=== PATIENT | male | born 1970 | race Caucasian/White ===

== ENCOUNTER 2018-02-01 11:43 | Inpatient (IN) | payer OTHER ==
[2018-02-01 15:16] VITALS: BMI 24.7
--- NOTE | 2018-02-01 16:41 | HP ---
CIWA Score - CIWA Score Nausea/Vomitin Muscle Tremors: 2 Anxiety: 3 Agitation: 2 Paroxysmal Sweats: 2 Orientation: 1-Uncertain about Date (no distress) Tacttile Disturbances: 0-None Auditory Disturbances: 0-None Visual Disturbances: 0-None Headache: 3-Moderate CIWA-Ar Total Score: 16 Admission [facility] Chief Complaint: alcohol withdrawal symptoms Allergies/Adverse Reactions: Allergies Allergy/AdvReac Type Severity Reaction Status Date / Time No Known Allergies Allergy Verified 02/01/18 16:58 History of Present Illness: 47 yo male with hx of nicotine , rack / cocaine and alcohol dependence is here seeking detox. Last detox [facility] 12/24/17 -12/27/17. PMHX: HTN, chronic back pain, bipolar, insomnia, anxiety and depression. Denies suicidal / homicidal ideation , reports hx of suicide attempt x1 ten years ago. Denies hx of seizures. Longest period of sobriety two years. Exam Limitations: No Limitations - Ebola screening Have you traveled outside of the country in the last 21 days: No Have you had contact with anyone from an Ebola affected area: No Have you been sick,other than usual withdrawal symptoms: No Do you have a fever: No - Review of Systems Constitutional: Diaphoresis, Changes in sleep, Unintentional Wgt. Loss (12 lbs in past two months) EENT: reports: Dental Problems (poor dentition) Respiratory: reports: No Symptoms reported Cardiac: reports: No Symptoms Reported GI: reports: Nausea, Poor Appetite, Poor Fluid Intake, Abdominal cramping : reports: No Symptoms Reported Musculoskeletal: reports: Back Pain Integumentary: reports: No Symptoms Reported Neuro: reports: No Symptoms reported Endocrine: reports: Increased Thirst Hematology: reports: No Symptoms Reported Psychiatric: reports: Orientated x3, Anxious Other Systems: Reviewed and Negative Patient History - Patient Medical History Hx Anemia: No Hx Asthma: No Hx Chronic Obstructive Pulmonary Disease (COPD): No Hx Cancer: No Hx Cardiac Disorders: No Hx Congestive Heart Failure: No Hx Hypertension: Yes (on meds) Hx Hypercholesterolemia: No Hx Pacemaker: No HX Cerebrovascular Accident: No Hx Seizures: No Hx Diabetes: No Hx Gastrointestinal Disorders: Yes (gerd) Hx Liver Disease: No Hx Genitourinary Disorders: No Hx Sexually Transmitted Disorders: No Hx Renal Disease (ESRD): No Hx Thyroid Disease: No Hx Human Immunodeficiency Virus (HIV): No (last tested three months ago ) Hx Hepatitis C: No Hx Depression: Yes (hospitalized september 2017 [facility]) Hx Suicide Attempt: Yes (10 years ago by hanging ) Hx Bipolar Disorder: Yes Hx Schizophrenia: No - Patient Surgical History Past Surgical History: No Hx Neurologic Surgery: No Hx Cataract Extraction: No Hx Cardiac Surgery: No Hx Lung Surgery: No Hx Breast Surgery: No Hx Breast Biopsy: No Hx Abdominal Surgery: No Hx Appendectomy: No Hx Cholecystectomy: No Hx Genitourinary Surgery: No Hx Section: No Hx Orthopedic Surgery: No Anesthesia Reaction: No - PPD History Previous Implant?: No (CXRAY 12/26/17 NEG ) Documented Results: Negative w/o proof PPD to be Administered?: No - Smoking Cessation Smoking history: Current every day smoker Have you smoked in the past 12 months: Yes Aproximately how many cigarettes per day: 15 Cigars Per Day: 0 Hx Chewing Tobacco Use: No Initiated information on smoking cessation: Yes 'Breaking Loose' booklet given: 02/01/18 - Substance & Tx. History Hx Alcohol Use: Yes Hx Substance Use: Yes Substance Use Type: Alcohol Hx Substance Use Treatment: Yes ([facility] 12/24/17 -12/27/17) - Substances Abused Alcohol Route: Oral Frequency: Daily Amount used: 10 x 40 oz beer + 10 nips Age of first use: 18 Date of Last Use: 01/31/18 Crack Route: Smoking Frequency: Daily Amount used: $100 Age of first use: 24 Date of Last Use: 01/31/18 Family Disease History - Family Disease History Family Disease History: Heart Disease: Father (, ), [place]: Mother (living, ), Other: Father, Mother, Brother (seven - one HIV), Sister (five - one killed herself) Admission Physical Exam BHS - Vital Signs Vital Signs: Vital Signs - 24 hr 02/01/18 15:14 Temperature 98.3 F Pulse Rate 64 Respiratory 18 Rate Blood Pressure 145/91 - Physical General Appearance: Yes: Disheveled, Mild Distress, Thin, Sweating, Anxious HEENTM: Yes: EOMI, Hearing grossly Normal, Normal ENT Inspection, Normocephalic , Normal Voice, ANGIE, Pharynx Normal, Tm's normal, Other (poor dentition) Respiratory: Yes: Chest Non-Tender, Lungs Clear, Normal Breath Sounds, No Respiratory Distress, No Accessory Muscle Use Neck: Yes: Within Normal Limits Breast: Yes: Breast Exam Deferred Cardiology: Yes: Regular Rhythm, Regular Rate Abdominal: Yes: Normal Bowel Sounds, Non Tender, Flat, Soft Musculoskeletal: Yes: full range of Motion, Gait Steady, Pelvis Stable, Back pain Extremities: Yes: Normal Capillary Refill, Normal Inspection, Normal Range of Motion, Non-Tender Neurological: Yes: lump roller II-XII NML intact, Fully Oriented, Alert, Motor Strength 5/5, Depressed Affect Integumentary: Yes: Normal Color, Warm, Diaphoresis - Diagnostic (1) Alcohol dependence with uncomplicated withdrawal Current Visit: Yes Status: Acute (2) Cocaine dependence Current Visit: Yes Status: Acute Qualifiers: Substance use status: uncomplicated Qualified Code(s): F14.20 - Cocaine dependence, uncomplicated (3) Nicotine dependence Current Visit: Yes Status: Acute Qualifiers: Nicotine product type: cigarettes Substance use status: in withdrawal Qualified Code(s): F17.213 - Nicotine dependence, cigarettes, with withdrawal (4) GERD (gastroesophageal reflux disease) Current Visit: Yes Status: Chronic Qualifiers: Esophagitis presence: esophagitis presence not specified Qualified Code(s) : K21.9 - Gastro-esophageal reflux disease without esophagitis (5) HTN (hypertension) Current Visit: Yes Status: Chronic Qualifiers: Hypertension type: essential hypertension Qualified Code(s): I10 - Essential (primary) hypertension Cleared for Admission S - Detox or Rehab [facility] Level of Care: Medically Managed Detox Regimen/Protocol: Librium S Breath Alcohol Content Breath Alcohol Content: 0 Urine Drug Screen - Results Drug Screen Negative: No Urine Drug Screen Results: PATI-Cocaine
[2018-02-01] MEDS ORDERED: MAGNESIUM CITRATE 300 ML BOTTLE PO PRN (16:50)
[2018-02-01] MEDS ORDERED: MENTHOL/PHENOL 1 EACH UD MM PRN (16:50)
[2018-02-01] MEDS ORDERED: chlordiazePOXIDE HCL 25 MG CAPSULE PO PRN (16:50)
[2018-02-01] MEDS ORDERED: IBUPROFEN 400 MG TABLET (FP) PO PRN (16:50)
[2018-02-01] MEDS ORDERED: guaiFENesin/D-METHORPHAN HB 10 ML UNIT-DOSE CUPS PO PRN (16:50)
[2018-02-01] MEDS ORDERED: P-EPHED 60MG/TRIPROLIDI 2.5MG TABLET PO PRN (16:50)
[2018-02-01] MEDS ORDERED: LOPERAMIDE HCL 2 MG CAPSULE PO PRN (16:50)
[2018-02-01] MEDS ORDERED: ACETAMINOPHEN 325 MG TABLET (FP) PO PRN (16:50)
[2018-02-01] MEDS ORDERED: MAGNESIUM HYDROX 2400MG/30ML ORAL SUSPENSION 30 ML CUP PO PRN (16:50)
[2018-02-01] MEDS ORDERED: chlordiazePOXIDE HCL 25 MG CAPSULE PO ONE (18:15)
[2018-02-01] MEDS: amLODIPine BESYLATE 10 MG TABLET (FP) PO SCH (18:59)
[2018-02-01] MEDS ORDERED: CYCLOBENZAPRINE HCL 10 MG TABLET (FP) PO SCH (22:00)
[2018-02-01] MEDS ORDERED: MELATONIN 5 MG TABLETS PO PRN (22:00)
[2018-02-01] MEDS: THIAMINE HCL 100 MG TABLET (FP) PO SCH (23:04)
[2018-02-01] MEDS: chlordiazePOXIDE HCL 25 MG CAPSULE PO SCH (23:04)
[2018-02-02 02:15] LABS: URINE APPEARANCE CLEAR; URINE BILIRUBIN NEGATIVE (<2.0 mg/dL); URINE COLOR YELLOW; URINE GLUCOSE (UA) NEGATIVE (NEGATIVE); URINE KETONE NEGATIVE (NEGATIVE); URINE LEUK ESTERASE NEGATIVE (NEGATIVE); URINE NITRITE NEGATIVE (NEGATIVE); URINE PROTEIN NEGATIVE (NEGATIVE); URINE UROBILINOGEN NEGATIVE mg/dL (0.2-1.0)
[2018-02-02 02:35] LABS: EPI CELLS RARE /HPF (FEW); URINE MUCUS MODERATE
[2018-02-02] MEDS: chlordiazePOXIDE HCL 25 MG CAPSULE PO SCH ×4 (06:38→22:44)
[2018-02-02] MEDS: CYCLOBENZAPRINE HCL 5 MG TABLET PO SCH ×3 (06:41→22:42)
--- NOTE | 2018-02-02 09:35 | CONSULT ---
[facility] Psychiatric Consult - Data Date of interview: 02/02/18 Admission source: [facility] Identifying data: This is a 47 years old male, single, homeless, on PA, with Bipolar Disordwer history, with psychiatris hospitalization history, with long history of Cocaine, Alcohol and Niucotine deprendence. Patient reports withdrawal symptoms and seeking for detox. Substance Abuse History: Smoking history: Current every day smoker. Have you smoked in the past 12 months: Yes. Aproximately how many cigarettes per day: 15. Cigars Per Day: 0. Hx Chewing Tobacco Use: No. Initiated information on smoking cessation: Yes. 'Breaking Loose' booklet given: 02/01/18. - Substance & Tx. History. Hx Alcohol Use: Yes. Hx Substance Use: Yes. Substance Use Type : Alcohol. Hx Substance Use Treatment: Yes ([facility] 12/24/17 -12/27/17). - Substances Abused. Alcohol. Route: Oral. Frequency: Daily. Amount used: 10 x 40 oz beer + 10 nips. Age of first use: 18. Date of Last Use: 01/31/18. Crack. Route: Smoking. Frequency: Daily. Amount used: $100. Age of first use: 24. Date of Last Use: 01/31/18 Medical History: GERD, HTN, LBP Psychiatric History: Patient reports history of Bipolar Disorder, as per computer history of MDD, with most recent psychiatric admission on 4 months ago at [facility] due to depression. Patient reports suiciadal attempt on more then 10 years ago by hanging himself, reports no suicidal history sinse then. Patient reports taking prior to admission: Seroquel 100mg po qhs. Lexapro 10mg poqd. Gabapentine 800mg po tid. Physical/Sexual Abuse/Trauma History: Denies Additional Comment: Seroquel 100mg po qhs. Lexapro 10mg poqd. Gabapentine 800mg po tid. Mental Status Exam - Mental Status Exam Alert and Oriented to: Place, Person Cognitive Function: Fair Patient Appearance: Well Groomed Mood: Anxious Affect: Mood Congruent Patient Behavior: Appropriate, Cooperative Speech Pattern: Appropriate Voice Loudness: Normal Thought Process: Goal Oriented Thought Disorder: Being Controlled Hallucinations: Denies Suicidal Ideation: Denies Homicidal Ideation: Denies Insight/Judgement: Fair Sleep: Difficulty falling asleep Appetite: Weight loss Muscle strength/Tone: Normal Gait/Station: Normal Additional Comments: Seroquel 100mg po qhs. Lexapro 10mg poqd. Gabapentine 800mg po tid. Psychiatric Findings - Problem List (Vader 1, 2,3) (1) Bipolar disorder Current Visit: Yes Status: Acute (2) Alcohol dependence with uncomplicated withdrawal Current Visit: Yes Status: Acute (3) Cocaine dependence Current Visit: Yes Status: Acute Qualifiers: Substance use status: uncomplicated Qualified Code(s): F14.20 - Cocaine dependence, uncomplicated (4) Nicotine dependence Current Visit: Yes Status: Acute Qualifiers: Nicotine product type: cigarettes Substance use status: in withdrawal Qualified Code(s): F17.213 - Nicotine dependence, cigarettes, with withdrawal (5) GERD (gastroesophageal reflux disease) Current Visit: Yes Status: Chronic Qualifiers: Esophagitis presence: esophagitis presence not specified Qualified Code(s) : K21.9 - Gastro-esophageal reflux disease without esophagitis (6) HTN (hypertension) Current Visit: Yes Status: Chronic Qualifiers: Hypertension type: essential hypertension Qualified Code(s): I10 - Essential (primary) hypertension (7) Substance-induced anxiety disorder Current Visit: No Status: Acute (8) Substance-induced sleep disorder Current Visit: No Status: Acute (9) MDD (major depressive disorder), recurrent episode, moderate Current Visit: No Status: Chronic (10) PPD positive, treated Current Visit: No Status: Resolved - Initial Treatment Plan Initial Treatment Plan: Seroquel 100mg po qhs. Lexapro 10mg poqd. Gabapentine 800mg po tid.
[2018-02-02 10:34] LABS: HEMATOCRIT 47.4 % (35.4-49); HEMOGLOBIN 15.5 GM/dL (11.7-16.9); MCHC 32.7 g/dl (32.0-35.9); MEAN CELL VOLUME 85.7 fl (80-96); MEAN PLT VOLUME 7.6 fl (7.5-11.1); PLATELET COUNT 300 K/MM3 (134-434); RBC 5.54 M/mm3 (4.00-5.60); RDW 15.7 % (11.9-15.9); WHITE BLOOD COUNT 6.1 K/mm3 (4.0-10.0)
[2018-02-02] MEDS: amLODIPine BESYLATE 10 MG TABLET (FP) PO SCH (10:51)
[2018-02-02] MEDS: ESCITALOPRAM OXALATE 10 MG TABLET (FP) PO SCH (10:51)
[2018-02-02] MEDS: PRENATAL VITAMINS W/ FOLIC ACID TABLET (FP) PO SCH (10:52)
[2018-02-02 11:05] LABS: CHLORIDE 107 mmol/L (98-107); POTASSIUM 4.3 mmol/L (3.5-5.1); SGOT/AST 14 U/L (15-37); SODIUM 143 mmol/L (136-145)
--- NOTE | 2018-02-02 11:10 | PN ---
S CIWA - CIWA Score Nausea/Vomitin Muscle Tremors: 3 Anxiety: 3 Agitation: 2 Paroxysmal Sweats: 1-Minimal Palms Moist Orientation: 0-Oriented Tacttile Disturbances: 1-Very Mild Itch/Numbness Auditory Disturbances: 1-Very Mild Visual Disturbances: 0-None Headache: 2-Mild CIWA-Ar Total Score: 16 BHS Progress Note (SOAP) Subjective: alert,irritable,anxious,interrupted sleep,tremor Objective: 02/02/18 11:08 Vital Signs Temperature 98.1 F 02/02/18 10:28 Pulse Rate 63 02/02/18 10:28 Respiratory Rate 18 02/02/18 10:28 Blood Pressure 115/71 02/02/18 10:28 O2 Sat by Pulse Oximetry (%) 02/02/18 11:08 ekg nsr with sinus arrhythmia normal ecg qt/qtc 422/424 Assessment: 02/02/18 11:09 withdrawal symptom Plan: continue detox
[2018-02-02 11:34] LABS: ALBUMIN 3.4 g/dl (3.4-5.0); ALK PHOS 110 U/L (45-117); ANION GAP 9 (8-16); BILIRUBIN,TOTAL 0.3 mg/dL (0.2-1.0); BLOOD UREA NITROGEN 14 mg/dL (7-18); CALCIUM 8.8 mg/dL (8.5-10.1); CO2 27 mmol/L (21-32); GLUCOSE,RANDOM 99 mg/dL (74-106); SGPT/ALT 23 U/L (12-78); TOT PROT 6.4 g/dl (6.4-8.2)
[2018-02-02] MEDS: GABAPENTIN 400 MG CAPSULE (FP) PO SCH ×2 (14:52→22:42)
--- NOTE | 2018-02-02 16:50 | EKG ---
Test Reason : Blood Pressure : / mmHG Vent. Rate : 061 BPM Atrial Rate : 061 BPM P-R Int : 164 ms QRS Dur : 090 ms QT Int : 422 ms P-R-T Axes : 039 027 030 degrees QTc Int : 424 ms NORMAL SINUS RHYTHM WITH SINUS ARRHYTHMIA NORMAL ECG WHEN COMPARED WITH ECG OF 24-DEC-2017 13:56, NO SIGNIFICANT CHANGE WAS FOUND Confirmed by ANGEL FIELDS MD ([id number]) on 02/02/2018 3:52:16 PM Referred By: Confirmed By:ANGEL FIELDS MD
[2018-02-02] MEDS: THIAMINE HCL 100 MG TABLET (FP) PO SCH (22:42)
[2018-02-02] MEDS: QUEtiapine FUMARATE 100 MG TABLET (FP) PO SCH (22:42)
[2018-02-03] MEDS: CYCLOBENZAPRINE HCL 5 MG TABLET PO SCH ×3 (06:01→22:30)
[2018-02-03] MEDS: GABAPENTIN 400 MG CAPSULE (FP) PO SCH ×3 (06:02→22:30)
[2018-02-03] MEDS: chlordiazePOXIDE HCL 25 MG CAPSULE PO SCH ×3 (06:02→17:42)
--- NOTE | 2018-02-03 10:30 | PN ---
S CIWA - CIWA Score Nausea/Vomitin Muscle Tremors: 3 Anxiety: 3 Agitation: 2 Paroxysmal Sweats: 1-Minimal Palms Moist Orientation: 0-Oriented Tacttile Disturbances: 1-Very Mild Itch/Numbness Auditory Disturbances: 1-Very Mild Visual Disturbances: 0-None Headache: 2-Mild CIWA-Ar Total Score: 16 BHS Progress Note (SOAP) Subjective: alert,irritable,anxious,interrupted sleep,tremor Objective: 02/03/18 10:26 Vital Signs Temperature 98.1 F 02/03/18 09:23 Pulse Rate 60 02/03/18 09:23 Respiratory Rate 18 02/03/18 09:23 Blood Pressure 116/70 02/03/18 09:23 O2 Sat by Pulse Oximetry (%) 02/03/18 10:26 Laboratory Last Values WBC 6.1 K/mm3 (4.0-10.0) 02/02/18 07:00 RBC 5.54 M/mm3 (4.00-5.60) 02/02/18 07:00 Hgb 15.5 GM/dL (11.7-16.9) 02/02/18 07:00 Hct 47.4 % (35.4-49) 02/02/18 07:00 MCV 85.7 fl (80-96) 02/02/18 07:00 MCH 28.0 pg (25.7-33.7) 02/02/18 07:00 MCHC 32.7 g/dl (32.0-35.9) 02/02/18 07:00 RDW 15.7 % (11.9-15.9) 02/02/18 07:00 Plt Count 300 K/MM3 (134-434) 02/02/18 07:00 MPV 7.6 fl (7.5-11.1) 02/02/18 07:00 Sodium 143 mmol/L (136-145) 02/02/18 07:00 Potassium 4.3 mmol/L (3.5-5.1) 02/02/18 07:00 Chloride 107 mmol/L (98-107) 02/02/18 07:00 Carbon Dioxide 27 mmol/L (21-32) 02/02/18 07:00 Anion Gap 9 (8-16) 02/02/18 07:00 BUN 14 mg/dL (7-18) 02/02/18 07:00 Creatinine 1.0 mg/dL (0.7-1.3) 02/02/18 07:00 Creat Clearance w eGFR > 60 (>60) 02/02/18 07:00 Random Glucose 99 mg/dL (74-106) 02/02/18 07:00 Calcium 8.8 mg/dL (8.5-10.1) 02/02/18 07:00 Total Bilirubin 0.3 mg/dL (0.2-1.0) 02/02/18 07:00 AST 14 U/L (15-37) L D 02/02/18 07:00 ALT 23 U/L (12-78) 02/02/18 07:00 Alkaline Phosphatase 110 U/L (45-117) 02/02/18 07:00 Total Protein 6.4 g/dl (6.4-8.2) 02/02/18 07:00 Albumin 3.4 g/dl (3.4-5.0) 02/02/18 07:00 Urine Color Yellow 02/02/18 00:01 Urine Appearance Clear 02/02/18 00:01 Urine pH 5.0 (5.0-8.0) 02/02/18 00:01 Ur Specific [place] 1.028 (1.001-1.035) 02/02/18 00:01 Urine Protein Negative (NEGATIVE) 02/02/18 00:01 Urine Glucose (UA) Negative (NEGATIVE) 02/02/18 00:01 Urine Ketones Negative (NEGATIVE) 02/02/18 00:01 Urine Blood 1+ (NEGATIVE) H 02/02/18 00:01 Urine Nitrite Negative (NEGATIVE) 02/02/18 00:01 Urine Bilirubin Negative (<2.0 mg/dL) 02/02/18 00:01 Urine Urobilinogen Negative mg/dL (0.2-1.0) 02/02/18 00:01 Ur Leukocyte Esterase Negative (NEGATIVE) 02/02/18 00:01 Urine WBC (Auto) 6 /hpf (3-5) 02/02/18 00:01 Urine RBC (Auto) 1 /hpf (0-3) 02/02/18 00:01 Ur Epithelial Cells Rare /HPF (FEW) 02/02/18 00:01 Urine Mucus Moderate 02/02/18 00:01 HIV 1&2 Antibody Screen Negative 02/02/18 07:00 HIV P24 Antigen Negative 02/02/18 07:00 Assessment: 02/03/18 10:27 withdrawal symptom Plan: continue detox
[2018-02-03] MEDS: amLODIPine BESYLATE 10 MG TABLET (FP) PO SCH (10:43)
[2018-02-03] MEDS: ESCITALOPRAM OXALATE 10 MG TABLET (FP) PO SCH (10:43)
[2018-02-03] MEDS: PRENATAL VITAMINS W/ FOLIC ACID TABLET (FP) PO SCH (10:43)
[2018-02-03] MEDS: QUEtiapine FUMARATE 100 MG TABLET (FP) PO SCH (22:30)
[2018-02-03] MEDS: chlordiazePOXIDE 5 MG CAPSULE PO SCH (22:30)
[2018-02-03] MEDS: THIAMINE HCL 100 MG TABLET (FP) PO SCH (22:30)
[2018-02-04] MEDS: GABAPENTIN 400 MG CAPSULE (FP) PO SCH ×2 (05:30→15:00)
[2018-02-04] MEDS: CYCLOBENZAPRINE HCL 5 MG TABLET PO SCH ×2 (05:31→15:01)
[2018-02-04] MEDS: chlordiazePOXIDE 5 MG CAPSULE PO SCH ×3 (05:31→18:12)
[2018-02-04] MEDS: ESCITALOPRAM OXALATE 10 MG TABLET (FP) PO SCH (10:37)
[2018-02-04] MEDS: amLODIPine BESYLATE 10 MG TABLET (FP) PO SCH (10:37)
[2018-02-04] MEDS: PRENATAL VITAMINS W/ FOLIC ACID TABLET (FP) PO SCH (10:37)
[2018-02-04] MEDS: hydrOXYzine PAMOATE 50 MG CAPSULE (FP) PO PRN (18:12)
--- NOTE | 2018-02-04 22:59 | PN ---
BHS Progress Note (SOAP) Subjective: shakes sweats Sleeplessness Objective: 02/04/18 22:58 Sleeping but arouses to verbal stimuli A & O x 3 Not in acute distress Assessment: 02/04/18 22:58 withdrawal sx Plan: continue detox
[2018-02-05] MEDS: QUEtiapine FUMARATE 100 MG TABLET (FP) PO SCH (00:18)
[2018-02-05] MEDS: THIAMINE HCL 100 MG TABLET (FP) PO SCH (00:18)
[2018-02-05] MEDS: CYCLOBENZAPRINE HCL 5 MG TABLET PO SCH ×3 (00:18→15:00)
[2018-02-05] MEDS: GABAPENTIN 400 MG CAPSULE (FP) PO SCH ×3 (00:18→15:00)
[2018-02-05] MEDS: chlordiazePOXIDE HCL 10 MG CAPSULE PO SCH ×4 (00:19→17:29)
[2018-02-05] MEDS: MAG HYDROX/AL HYDROX/SIMETH 30 ML UNIT-DOSE CUP PO PRN (00:53)
[2018-02-05] MEDS: ESCITALOPRAM OXALATE 10 MG TABLET (FP) PO SCH (11:36)
[2018-02-05] MEDS: PRENATAL VITAMINS W/ FOLIC ACID TABLET (FP) PO SCH (11:36)
[2018-02-05] MEDS: amLODIPine BESYLATE 10 MG TABLET (FP) PO SCH (11:36)
--- NOTE | 2018-02-05 11:47 | PN ---
S Progress Note (SOAP) Subjective: Interrupted sleep,muscle aches Objective: 02/05/18 11:46 Vital Signs 02/05/18 02/05/18 06:00 10:23 Temperature 97.5 F L 97.9 F Pulse Rate 72 89 Respiratory 18 18 Rate Blood Pressure 121/69 129/90 Laboratory Last Values WBC 6.1 K/mm3 (4.0-10.0) 02/02/18 07:00 RBC 5.54 M/mm3 (4.00-5.60) 02/02/18 07:00 Hgb 15.5 GM/dL (11.7-16.9) 02/02/18 07:00 Hct 47.4 % (35.4-49) 02/02/18 07:00 MCV 85.7 fl (80-96) 02/02/18 07:00 MCH 28.0 pg (25.7-33.7) 02/02/18 07:00 MCHC 32.7 g/dl (32.0-35.9) 02/02/18 07:00 RDW 15.7 % (11.9-15.9) 02/02/18 07:00 Plt Count 300 K/MM3 (134-434) 02/02/18 07:00 MPV 7.6 fl (7.5-11.1) 02/02/18 07:00 Sodium 143 mmol/L (136-145) 02/02/18 07:00 Potassium 4.3 mmol/L (3.5-5.1) 02/02/18 07:00 Chloride 107 mmol/L (98-107) 02/02/18 07:00 Carbon Dioxide 27 mmol/L (21-32) 02/02/18 07:00 Anion Gap 9 (8-16) 02/02/18 07:00 BUN 14 mg/dL (7-18) 02/02/18 07:00 Creatinine 1.0 mg/dL (0.7-1.3) 02/02/18 07:00 Creat Clearance w eGFR > 60 (>60) 02/02/18 07:00 Random Glucose 99 mg/dL (74-106) 02/02/18 07:00 Calcium 8.8 mg/dL (8.5-10.1) 02/02/18 07:00 Total Bilirubin 0.3 mg/dL (0.2-1.0) 02/02/18 07:00 AST 14 U/L (15-37) L D 02/02/18 07:00 ALT 23 U/L (12-78) 02/02/18 07:00 Alkaline Phosphatase 110 U/L (45-117) 02/02/18 07:00 Total Protein 6.4 g/dl (6.4-8.2) 02/02/18 07:00 Albumin 3.4 g/dl (3.4-5.0) 02/02/18 07:00 Urine Color Yellow 02/02/18 00:01 Urine Appearance Clear 02/02/18 00:01 Urine pH 5.0 (5.0-8.0) 02/02/18 00:01 Ur Specific [place] 1.028 (1.001-1.035) 02/02/18 00:01 Urine Protein Negative (NEGATIVE) 02/02/18 00:01 Urine Glucose (UA) Negative (NEGATIVE) 02/02/18 00:01 Urine Ketones Negative (NEGATIVE) 02/02/18 00:01 Urine Blood 1+ (NEGATIVE) H 02/02/18 00:01 Urine Nitrite Negative (NEGATIVE) 02/02/18 00:01 Urine Bilirubin Negative (<2.0 mg/dL) 02/02/18 00:01 Urine Urobilinogen Negative mg/dL (0.2-1.0) 02/02/18 00:01 Ur Leukocyte Esterase Negative (NEGATIVE) 02/02/18 00:01 Urine WBC (Auto) 6 /hpf (3-5) 02/02/18 00:01 Urine RBC (Auto) 1 /hpf (0-3) 02/02/18 00:01 Ur Epithelial Cells Rare /HPF (FEW) 02/02/18 00:01 Urine Mucus Moderate 02/02/18 00:01 RPR Titer Nonreactive (NONREACTIVE) 02/02/18 07:00 HIV 1&2 Antibody Screen Negative 02/02/18 07:00 HIV P24 Antigen Negative 02/02/18 07:00 Labs noted Assessment: 02/05/18 11:47 Withdrawal sx resolving Plan: Continue detox
--- NOTE | 2018-02-05 11:50 | DS ---
[facility] Detox Discharge Summary Admission Date: 02/01/18 Discharge Date: 02/05/18 - History Present History: Alcohol Dependence Pertinent Past History: GERD, HTN & Mood disorder - Physical Exam Results Vital Signs: Vital Signs Temperature 97.9 F 02/05/18 10:23 Pulse Rate 89 02/05/18 10:23 Respiratory Rate 18 02/05/18 10:23 Blood Pressure 129/90 02/05/18 10:23 O2 Sat by Pulse Oximetry (%) Pertinent Admission Physical Exam Findings: Withdrawal sx Laboratory Last Values WBC 6.1 K/mm3 (4.0-10.0) 02/02/18 07:00 RBC 5.54 M/mm3 (4.00-5.60) 02/02/18 07:00 Hgb 15.5 GM/dL (11.7-16.9) 02/02/18 07:00 Hct 47.4 % (35.4-49) 02/02/18 07:00 MCV 85.7 fl (80-96) 02/02/18 07:00 MCH 28.0 pg (25.7-33.7) 02/02/18 07:00 MCHC 32.7 g/dl (32.0-35.9) 02/02/18 07:00 RDW 15.7 % (11.9-15.9) 02/02/18 07:00 Plt Count 300 K/MM3 (134-434) 02/02/18 07:00 MPV 7.6 fl (7.5-11.1) 02/02/18 07:00 Sodium 143 mmol/L (136-145) 02/02/18 07:00 Potassium 4.3 mmol/L (3.5-5.1) 02/02/18 07:00 Chloride 107 mmol/L (98-107) 02/02/18 07:00 Carbon Dioxide 27 mmol/L (21-32) 02/02/18 07:00 Anion Gap 9 (8-16) 02/02/18 07:00 BUN 14 mg/dL (7-18) 02/02/18 07:00 Creatinine 1.0 mg/dL (0.7-1.3) 02/02/18 07:00 Creat Clearance w eGFR > 60 (>60) 02/02/18 07:00 Random Glucose 99 mg/dL (74-106) 02/02/18 07:00 Calcium 8.8 mg/dL (8.5-10.1) 02/02/18 07:00 Total Bilirubin 0.3 mg/dL (0.2-1.0) 02/02/18 07:00 AST 14 U/L (15-37) L D 02/02/18 07:00 ALT 23 U/L (12-78) 02/02/18 07:00 Alkaline Phosphatase 110 U/L (45-117) 02/02/18 07:00 Total Protein 6.4 g/dl (6.4-8.2) 02/02/18 07:00 Albumin 3.4 g/dl (3.4-5.0) 02/02/18 07:00 Urine Color Yellow 02/02/18 00:01 Urine Appearance Clear 02/02/18 00:01 Urine pH 5.0 (5.0-8.0) 02/02/18 00:01 Ur Specific [place] 1.028 (1.001-1.035) 02/02/18 00:01 Urine Protein Negative (NEGATIVE) 02/02/18 00:01 Urine Glucose (UA) Negative (NEGATIVE) 02/02/18 00:01 Urine Ketones Negative (NEGATIVE) 02/02/18 00:01 Urine Blood 1+ (NEGATIVE) H 02/02/18 00:01 Urine Nitrite Negative (NEGATIVE) 02/02/18 00:01 Urine Bilirubin Negative (<2.0 mg/dL) 02/02/18 00:01 Urine Urobilinogen Negative mg/dL (0.2-1.0) 02/02/18 00:01 Ur Leukocyte Esterase Negative (NEGATIVE) 02/02/18 00:01 Urine WBC (Auto) 6 /hpf (3-5) 02/02/18 00:01 Urine RBC (Auto) 1 /hpf (0-3) 02/02/18 00:01 Ur Epithelial Cells Rare /HPF (FEW) 02/02/18 00:01 Urine Mucus Moderate 02/02/18 00:01 RPR Titer Nonreactive (NONREACTIVE) 02/02/18 07:00 HIV 1&2 Antibody Screen Negative 02/02/18 07:00 HIV P24 Antigen Negative 02/02/18 07:00 Labs noted - Treatment Hospital Course: Detox Protocol Followed, Detoxed Safely, Responded well, Discharged Condition Good, Rehab Referral Accepted Patient has Accepted a Rehab Referral to: [facility] - Medication Discharge Medications: Ambulatory Orders Ranitidine [Zantac -] 150 mg PO DAILY 12/24/17 Amlodipine Besylate [Norvasc -] 10 mg PO DAILY #30 tablet 12/27/17 Escitalopram Oxalate [Lexapro -] 10 mg PO DAILY #30 tablet 02/02/18 Gabapentin 800 mg PO TID #90 tablet 02/02/18 Quetiapine Fumarate [Seroquel] 100 mg PO HS #30 tablet 02/02/18 - Diagnosis (1) Alcohol dependence with uncomplicated withdrawal Current Visit: Yes Status: Acute (2) Cocaine dependence Current Visit: Yes Status: Acute Qualifiers: Substance use status: uncomplicated Qualified Code(s): F14.20 - Cocaine dependence, uncomplicated (3) Nicotine dependence Current Visit: Yes Status: Acute Qualifiers: Nicotine product type: cigarettes Substance use status: in withdrawal Qualified Code(s): F17.213 - Nicotine dependence, cigarettes, with withdrawal (4) GERD (gastroesophageal reflux disease) Current Visit: Yes Status: Chronic Qualifiers: Esophagitis presence: esophagitis presence not specified Qualified Code(s) : K21.9 - Gastro-esophageal reflux disease without esophagitis (5) HTN (hypertension) Current Visit: Yes Status: Chronic Qualifiers: Hypertension type: essential hypertension Qualified Code(s): I10 - Essential (primary) hypertension (6) Substance-induced anxiety disorder Current Visit: No Status: Acute (7) Substance-induced sleep disorder Current Visit: No Status: Acute (8) MDD (major depressive disorder), recurrent episode, moderate Current Visit: No Status: Chronic - AMA Did Patient Leave Against Medical Advice: No
[2018-02-05] MEDS: hydrOXYzine PAMOATE 50 MG CAPSULE (FP) PO PRN (17:29)
[2018-02-06] MEDS: QUEtiapine FUMARATE 100 MG TABLET (FP) PO SCH (00:53)
[2018-02-06] MEDS: GABAPENTIN 400 MG CAPSULE (FP) PO SCH ×2 (00:53→06:27)
[2018-02-06] MEDS: THIAMINE HCL 100 MG TABLET (FP) PO SCH (00:53)
[2018-02-06] MEDS: CYCLOBENZAPRINE HCL 5 MG TABLET PO SCH ×2 (00:53→06:27)
[2018-02-06] MEDS: MAG HYDROX/AL HYDROX/SIMETH 30 ML UNIT-DOSE CUP PO PRN (03:13)
--- NOTE | 2018-02-06 08:12 | PN ---
S Progress Note (SOAP) Subjective: alert,no complaint Objective: 02/06/18 08:11 Vital Signs Temperature 97.3 F L 02/06/18 06:23 Pulse Rate 61 02/06/18 06:23 Respiratory Rate 18 02/06/18 06:23 Blood Pressure 123/73 02/06/18 06:23 O2 Sat by Pulse Oximetry (%) Assessment: 02/06/18 08:11 detox completed,no withdrawal symptom Plan: discharge today,follow up with after care program as arrangement
--- NOTE | 2018-02-06 08:15 | DS ---
[facility] Detox Discharge Summary Admission Date: 02/01/18 Discharge Date: 02/06/18 - History Present History: Alcohol Dependence, Cocaine Dependence Additional Comments: follow up with after care program as arrangement Pertinent Past History: nicotine dependence gerd hypertension - Physical Exam Results Vital Signs: Vital Signs Temperature 97.3 F L 02/06/18 06:23 Pulse Rate 61 02/06/18 06:23 Respiratory Rate 18 02/06/18 06:23 Blood Pressure 123/73 02/06/18 06:23 O2 Sat by Pulse Oximetry (%) Pertinent Admission Physical Exam Findings: withdrawal signs and symptom Laboratory Last Values WBC 6.1 K/mm3 (4.0-10.0) 02/02/18 07:00 RBC 5.54 M/mm3 (4.00-5.60) 02/02/18 07:00 Hgb 15.5 GM/dL (11.7-16.9) 02/02/18 07:00 Hct 47.4 % (35.4-49) 02/02/18 07:00 MCV 85.7 fl (80-96) 02/02/18 07:00 MCH 28.0 pg (25.7-33.7) 02/02/18 07:00 MCHC 32.7 g/dl (32.0-35.9) 02/02/18 07:00 RDW 15.7 % (11.9-15.9) 02/02/18 07:00 Plt Count 300 K/MM3 (134-434) 02/02/18 07:00 MPV 7.6 fl (7.5-11.1) 02/02/18 07:00 Sodium 143 mmol/L (136-145) 02/02/18 07:00 Potassium 4.3 mmol/L (3.5-5.1) 02/02/18 07:00 Chloride 107 mmol/L (98-107) 02/02/18 07:00 Carbon Dioxide 27 mmol/L (21-32) 02/02/18 07:00 Anion Gap 9 (8-16) 02/02/18 07:00 BUN 14 mg/dL (7-18) 02/02/18 07:00 Creatinine 1.0 mg/dL (0.7-1.3) 02/02/18 07:00 Creat Clearance w eGFR > 60 (>60) 02/02/18 07:00 Random Glucose 99 mg/dL (74-106) 02/02/18 07:00 Calcium 8.8 mg/dL (8.5-10.1) 02/02/18 07:00 Total Bilirubin 0.3 mg/dL (0.2-1.0) 02/02/18 07:00 AST 14 U/L (15-37) L D 02/02/18 07:00 ALT 23 U/L (12-78) 02/02/18 07:00 Alkaline Phosphatase 110 U/L (45-117) 02/02/18 07:00 Total Protein 6.4 g/dl (6.4-8.2) 02/02/18 07:00 Albumin 3.4 g/dl (3.4-5.0) 02/02/18 07:00 Urine Color Yellow 02/02/18 00:01 Urine Appearance Clear 02/02/18 00:01 Urine pH 5.0 (5.0-8.0) 02/02/18 00:01 Ur Specific [place] 1.028 (1.001-1.035) 02/02/18 00:01 Urine Protein Negative (NEGATIVE) 02/02/18 00:01 Urine Glucose (UA) Negative (NEGATIVE) 02/02/18 00:01 Urine Ketones Negative (NEGATIVE) 02/02/18 00:01 Urine Blood 1+ (NEGATIVE) H 02/02/18 00:01 Urine Nitrite Negative (NEGATIVE) 02/02/18 00:01 Urine Bilirubin Negative (<2.0 mg/dL) 02/02/18 00:01 Urine Urobilinogen Negative mg/dL (0.2-1.0) 02/02/18 00:01 Ur Leukocyte Esterase Negative (NEGATIVE) 02/02/18 00:01 Urine WBC (Auto) 6 /hpf (3-5) 02/02/18 00:01 Urine RBC (Auto) 1 /hpf (0-3) 02/02/18 00:01 Ur Epithelial Cells Rare /HPF (FEW) 02/02/18 00:01 Urine Mucus Moderate 02/02/18 00:01 RPR Titer Nonreactive (NONREACTIVE) 02/02/18 07:00 HIV 1&2 Antibody Screen Negative 02/02/18 07:00 HIV P24 Antigen Negative 02/02/18 07:00 Vital Signs Temperature 97.3 F L 08/13/18 06:23 Pulse Rate 61 02/06/18 06:23 Respiratory Rate 18 02/06/18 06:23 Blood Pressure 123/73 02/06/18 06:23 O2 Sat by Pulse Oximetry (%) - Treatment Hospital Course: Detox Protocol Followed, Detoxed Safely, Responded well, Discharged Condition Good, Rehab Referral Accepted Patient has Accepted a Rehab Referral to: [email or web address] - Medication Discharge Medications: Ambulatory Orders Ranitidine [Zantac -] 150 mg PO DAILY 12/24/17 Amlodipine Besylate [Norvasc -] 10 mg PO DAILY #30 tablet 12/27/17 Escitalopram Oxalate [Lexapro -] 10 mg PO DAILY #30 tablet 02/02/18 Gabapentin 800 mg PO TID #90 tablet 02/02/18 Quetiapine Fumarate [Seroquel] 100 mg PO HS #30 tablet 02/02/18 - Diagnosis (1) Alcohol dependence with uncomplicated withdrawal Current Visit: Yes Status: Acute (2) Cocaine dependence Current Visit: Yes Status: Acute Qualifiers: Substance use status: uncomplicated Qualified Code(s): F14.20 - Cocaine dependence, uncomplicated (3) Nicotine dependence Current Visit: Yes Status: Acute Qualifiers: Nicotine product type: cigarettes Substance use status: in withdrawal Qualified Code(s): F17.213 - Nicotine dependence, cigarettes, with withdrawal (4) GERD (gastroesophageal reflux disease) Current Visit: Yes Status: Chronic Qualifiers: Esophagitis presence: esophagitis presence not specified Qualified Code(s) : K21.9 - Gastro-esophageal reflux disease without esophagitis (5) HTN (hypertension) Current Visit: Yes Status: Chronic Qualifiers: Hypertension type: essential hypertension Qualified Code(s): I10 - Essential (primary) hypertension - AMA Did Patient Leave Against Medical Advice: No
[2018-02-06 10:46] VITALS: BP 109/67; PULSE 72; TEMP 97.5
[2018-02-06] MEDS: ESCITALOPRAM OXALATE 10 MG TABLET (FP) PO SCH (11:07)
[2018-02-06] MEDS: PRENATAL VITAMINS W/ FOLIC ACID TABLET (FP) PO SCH (11:07)
[2018-02-06] MEDS: amLODIPine BESYLATE 10 MG TABLET (FP) PO SCH (11:07)
== END 2018-02-06 11:30 | disposition other institution (70) | DRG 774 ==
LOC: YASAS 11:43 → Y6N 18:01
PROVIDERS: ADMIT Surgery; ATTEND Surgery
PROC: HZ2ZZZZ Detoxification Services for Substance Abuse Treatment (ICD-10-PCS; principal; 2018-02-01)
DX: F10.230 Alcohol dependence with withdrawal, uncomplicated (principal); F14.20 Cocaine dependence, uncomplicated; F17.213 Nicotine dependence, cigarettes, with withdrawal; F19.280 Other psychoactive substance dependence with psychoactive substance-induced anxiety disorder; F19.282 Other psychoactive substance dependence with psychoactive substance-induced sleep disorder; F33.2 Major depressive disorder, recurrent severe without psychotic features; F31.9 Bipolar disorder, unspecified; I10 Essential (primary) hypertension; K21.9 Gastro-esophageal reflux disease without esophagitis; I49.9 Cardiac arrhythmia, unspecified; R76.11 Nonspecific reaction to tuberculin skin test without active tuberculosis; Z91.5 Personal history of self-harm
CPT/HCPCS: 36415; 80053; 81003; 81015; 85027; 86593; 87389; 93005; 93010

== ENCOUNTER 2024-06-15 10:51 | Inpatient (IN) | payer OTHER ==
[2024-06-15 11:14] VITALS: BMI 22.7
[2024-06-15] MEDS ORDERED: LOPERAMIDE HCL 2 MG CAPSULE PO PRN (13:22)
[2024-06-15] MEDS ORDERED: BENZONATATE 200 MG CAPSULE PO PRN (13:22)
[2024-06-15] MEDS ORDERED: BENZOCAINE/MENTHOL (CHLORASEPTIC ) LOZENGE MM PRN (13:22)
[2024-06-15] MEDS ORDERED: NICOTINE POLACRILEX 2 MG GUM BUC PRN (13:22)
[2024-06-15] MEDS ORDERED: guaiFENesin 600 MG TABLET.ER (FP) PO PRN (13:22)
[2024-06-15] MEDS ORDERED: hydrOXYzine PAMOATE 25 MG CAPSULE (FP) PO PRN (13:22)
[2024-06-15] MEDS ORDERED: IBUPROFEN 400 MG TABLET (FP) PO PRN (13:22)
[2024-06-15] MEDS ORDERED: MAGNESIUM HYDROX 2400MG/30ML ORAL SUSPENSION 30 ML CUP PO PRN (13:22)
[2024-06-15] MEDS ORDERED: NALOXONE (NARCAN) HCL 4 MG/0.1 ML SPRAY NS PRN (13:22)
[2024-06-15] MEDS ORDERED: ACETAMINOPHEN 325 MG TABLET (FP) PO PRN (13:22)
[2024-06-15] MEDS ORDERED: POLYETHYLENE GLYCOL (HEALTHYLAX) 3350 17 GM PACKET PO PRN (13:22)
[2024-06-15] MEDS ORDERED: ALBUTEROL SO4 HFA INHALER IH PRN (13:25)
[2024-06-15] MEDS ORDERED: TUBERCULIN PPD 5 TU/0.1ML VIAL ID ONE (15:31)
[2024-06-15] MEDS: GABAPENTIN 400 MG CAPSULE PO SCH (15:36)
[2024-06-15] MEDS: BUPRENORPHINE/NALOXONE 8 MG/2 MG FILM PACKET SL SCH (15:37)
[2024-06-15] MEDS: MELATONIN 5 MG TABLETS PO SCH (21:12)
[2024-06-15] MEDS: ATORVASTATIN CA 40 MG TABLET (FP) PO SCH (21:12)
[2024-06-15] MEDS: THIAMINE 100 MG TABLET PO SCH (21:13)
[2024-06-15] MEDS: MAG HYDROX/AL HYDROX/SIMETH 30 ML UNIT-DOSE CUP PO PRN (23:27)
[2024-06-16] MEDS: IBUPROFEN 600 MG TABLET (FP) PO PRN (06:39)
[2024-06-16 09:03] LABS: HEMATOCRIT 42.4 % (35.4-49); HEMOGLOBIN 13.7 GM/dL (11.7-16.9); MCH 26.4 pg (25.7-33.7); MCHC 32.2 g/dl (32.0-35.9); MEAN PLT VOLUME 7.6 fl (7.5-11.1); PLATELET COUNT 411 10^3/uL (134-434); RBC 5.17 M/mm3 (4.00-5.60); RDW 15.6 % (11.9-15.9); WHITE BLOOD COUNT 5.3 K/mm3 (4.0-10.0)
[2024-06-16 09:13] LABS: URINE APPEARANCE CLEAR; URINE BILIRUBIN NEGATIVE (NEGATIVE); URINE COLOR YELLOW; URINE GLUCOSE (UA) TRACE (NEGATIVE); URINE KETONE TRACE (NEGATIVE); URINE LEUK ESTERASE NEGATIVE (NEGATIVE); URINE NITRITE NEGATIVE (NEGATIVE); URINE PROTEIN TRACE (NEGATIVE); URINE UROBILINOGEN 0.2 mg/dL (0.2-1.0)
[2024-06-16 09:34] LABS: CHLORIDE 108 mmol/L (98-107); POTASSIUM 4.8 mmol/L (3.5-5.1); SODIUM 143 mmol/L (136-145)
[2024-06-16 09:41] LABS: ALBUMIN 3.3 g/dl (3.4-5.0); ANION GAP 3 mmol/L (4-13); CALCIUM 8.9 mg/dL (8.5-10.1); CO2 32 mmol/L (21-32); GLUCOSE,RANDOM 126 mg/dL (74-106)
[2024-06-16 09:45] LABS: CREATININE 1.4 mg/dL (0.55-1.3); SGOT/AST 20 U/L (15-37); SGPT/ALT 24 U/L (13-61)
[2024-06-16 09:47] LABS: ALK PHOS 105 U/L (45-117); BILIRUBIN,TOTAL 0.2 mg/dL (0.2-1); TOT PROT 6.4 g/dl (6.4-8.2)
[2024-06-16] MEDS: LOSARTAN POTASSIUM 50 MG TABLET PO SCH (11:01)
[2024-06-16] MEDS: NICOTINE 7 MG/24 HOURS TOPICAL PATCH TD SCH (11:01)
[2024-06-16] MEDS: PRENATAL VITAMINS W/ FOLIC ACID TABLET (FP) PO SCH (11:01)
[2024-06-16] MEDS: ARIPiprazole 5 MG TABLET PO SCH (11:45)
[2024-06-16] MEDS: DULoxetine HCL 30 MG CAPSULE.DR PO SCH (11:45)
[2024-06-17] MEDS: hydrOXYzine PAMOATE 50 MG CAPSULE (FP) PO PRN (07:33)
[2024-06-18 06:49] VITALS: BP 147/87; PULSE 60; RESP 16; TEMP 97.6
[2024-06-18] MEDS: NALOXONE (NYS OPIOID OVERDOSE PROGRAM) 4 MG/0.1 ML SPRAY NS SCH (09:09)
== END 2024-06-18 09:15 | disposition home or self-care (01) | DRG 772 ==
LOC: YASAS 10:51 → Y5N 14:37
PROVIDERS: ADMIT Allergy & Immunology; ATTEND Family Medicine Addiction Medicine
PROC: HZ42ZZZ Group Counseling for Substance Abuse Treatment, Cognitive-Behavioral (ICD-10-PCS; principal; 2024-06-15)
DX: F11.20 Opioid dependence, uncomplicated (principal); F14.20 Cocaine dependence, uncomplicated; F17.210 Nicotine dependence, cigarettes, uncomplicated; F31.9 Bipolar disorder, unspecified; F41.9 Anxiety disorder, unspecified; I10 Essential (primary) hypertension; K21.9 Gastro-esophageal reflux disease without esophagitis; M54.50 Low back pain, unspecified; G89.29 Other chronic pain
CPT/HCPCS: 36415; 71046-TC-FY; 80053; 80307; 81003; 85027; 86593; 86780; 86803; 93005; 93010